=== PATIENT | female | born 1985 | race Two or more races ===

== ENCOUNTER → 2025-03-30 | Outpatient (CLI) | payer MEDICAID, SELFPAY ==
--- NOTE | 2025-03-30 | XR_ITS ---
Examination: Left wrist 2 views TECHNIQUE: AP lateral left wrist 2 views Date and time: March 30, 2025 0741 hours INDICATIONS: Left wrist pain 2 years getting worse. FINDINGS: Mild osteopenia. Mild narrowing radiocarpal and intercarpal joints No fracture No avascular necrosis IMPRESSION: Mild narrowing radiocarpal and intercarpal joints
== END | disposition home or self-care (01) ==
LOC: CDIM 07:26
DX: M25.832 Other specified joint disorders, left wrist (principal)
CPT/HCPCS: 73100